=== PATIENT | female | born 2000 ===

== ENCOUNTER 2022-07-19 20:35 | Emergency (ER) | payer OTHER ==
[~2022-07-19] VITALS: Ht 165.1 cm; Wt 68.0 kg
--- NOTE | 2022-07-19 21:25 | NUR ---
Patient was triaged on [facility] due to no beds available in the ER. Patient waiting in the hallway with [facility] and [employer] to wait for bed opening.
[2022-07-19] MEDS ORDERED: HALOPERIDOL LACTATE 5 MG/1 ML VIAL IM ONE (21:30)
[2022-07-19] MEDS ORDERED: diphenhydrAMINE 50 MG/1 ML VIAL IM ONE (21:30)
[2022-07-19] MEDS ORDERED: HALOPERIDOL LACTATE 5 MG/1 ML VIAL ONE (21:32)
[2022-07-19] MEDS ORDERED: diphenhydrAMINE 50 MG/1 ML VIAL ONE (21:32)
[2022-07-19 22:37] LABS: HEMATOCRIT 34.3 % (31.2-41.9); MEAN CORPUSCULAR HEMOGLOBIN 27.3 uug (24.7-32.8); MEAN CORPUSCULAR VOLUME 84.5 fL (75.5-95.3); PLATELET COUNT (AUTO) 312 K/uL (179-408)
--- NOTE | 2022-07-19 22:40 | NUR ---
Placed patient in room 3 with [facility] jose guadalupe doing 1:1 on patient.
[2022-07-19 22:44] LABS: ALANINE AMINOTRANSFERASE 34 U/L (14-59); ALKALINE PHOSPHATASE 90 U/L (50-136); ASPARTATE AMINOTRANSFERASE 29 U/L (15-37); BILIRUBIN,DIRECT 0.3 mg/dL (0.0-0.2); BILIRUBIN,TOTAL 0.9 mg/dL (0.2-1.0); CARBON DIOXIDE 26 mmol/L (21-32); CHLORIDE 102 mmol/L (98-107); CREATININE 0.7 mg/dL (0.6-1.3); GLUCOSE 96 mg/dL (74-106); TOTAL PROTEIN, SERUM 7.3 g/dL (6.4-8.2); UREA NITROGEN, BLOOD 7 mg/dL (7-18)
[2022-07-19 22:52] LABS: ACETAMINOPHEN < 2.0 ug/mL (10-30); THYROID STIMULATING HORMONE 1.438 mIU/mL (0.358-3.740)
[2022-07-19 23:11] LABS: ETHANOL < 3 MG/DL (0-0)
[2022-07-19] MEDS ORDERED: POTASSIUM CHLORIDE 20 MEQ TAB.PRT.SR PO ONE (23:30)
[2022-07-19 23:43] LABS: *AMPHETAMINE, URINE POSITIVE (NEGATIVE); *CANNABINOID, URINE POSITIVE (NEGATIVE); *COCCAINE, URINE NEGATIVE (NEGATIVE); *OPIATE, URINE NEGATIVE (NEGATIVE); *PHENCYCLIDINE SCREEN,URINE NEGATIVE (NEGATIVE)
[2022-07-20 00:05] LABS: *COLOR,URINE YELLOW (YELLOW); *KETONES,URINE 4+ (NEGATIVE); *UROBILINOGEN,URINE 0.2 E.U./dl (NORMAL); LEUKOCYTE ESTERASE ,URINE NEGATIVE (NEGATIVE); NITRITE, URINE NEGATIVE (NEGATIVE); UGLUCOSE NEGATIVE (NEGATIVE)
[2022-07-20 00:09] LABS: *BLOOD, URINE TRACE (NEGATIVE)
[2022-07-20 00:11] LABS: *BILIRUBIN,URIN 1+ (NEGATIVE); *CLARITY,URINE HAZY (CLEAR)
[2022-07-20 00:12] LABS: BACTERIA,URINE FEW /HPF (NONE SEEN); WBC,URINE 0-3 /HPF (0-3)
[2022-07-20 00:13] LABS: *URINE HCG, QUAL NEGATIVE (NEGATIVE); SQUAMOUS EPITHELIAL CELL,UR FEW /HPF (NONE SEEN)
[2022-07-20] MEDS ORDERED: POTASSIUM CHLORIDE 20 MEQ TAB.PRT.SR ONE (00:42)
--- NOTE | 2022-07-20 04:20 | NUR ---
Patient awake, A/Ox3, calm and cooperative. Called Protestant from [facility] [employer] to eval patient.
--- NOTE | 2022-07-20 05:10 | NUR ---
Lakshmi came to assess pt. Pt. currently in bed, eyes closed. pt. is medically cleared
--- NOTE | 2022-07-20 05:33 | NUR ---
Paperworks faxed to [facility] at this time. If not accepted by [facility], Amanda social science instructor will f/u.
--- NOTE | 2022-07-20 07:25 | NUR ---
Received endorsement from Whitney NELSON
--- NOTE | 2022-07-20 07:28 | NUR ---
Whitney JOHNS did the In and Out F/C of the pt, no documentation.
--- NOTE | 2022-07-20 08:10 | NUR ---
Breakfast given to pt.
--- NOTE | 2022-07-20 08:40 | NUR ---
LYNDON spoke to Jay Jay from [facility] ([phone]) and he states that patient is accepted to [facility] with accepting psychiatrist, Dr. Bahena. LYNDON informed patient's nurse, Hazel, and she will call the nurse casino supervisor, Nicci ([phone]) at 9am to report.
--- NOTE | 2022-07-20 08:42 | NUR ---
Pt got accepted at [facility], under the care of Dr. Bahena. Nurse mail clerks supervisor Nicci will be ready to receive report at 0900, phone #[phone].
--- NOTE | 2022-07-20 08:44 | NUR ---
[facility] will be booking the transportation per Amanda DIAS
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
--- NOTE | 2022-07-20 09:56 | NUR ---
Pt in stable condition, AOx4, calm and cooperative. Pt V/S are WNL. Pt knows where she is being transported to. Picked-up by the [facility] non-emergency transportation.
== END 2022-07-20 09:54 ==
LOC: ER 20:59
DX: F23 Brief psychotic disorder (principal); F15.129 Other stimulant abuse with intoxication, unspecified; Z20.822 Contact with and (suspected) exposure to COVID-19; Z59.00 Homelessness unspecified
CPT/HCPCS: 80076; 80048; 81001; 84703; 84443; 85025; 87426; 36415; 99285; 96372 ×2; 80299; 80320; 80307; J1200; J1630; C1758; G0480